=== PATIENT | male | born 1965 | race Caucasian/White ===

== ENCOUNTER 2017-07-08 10:47 | Day surgery (SDC) | payer OTHER ==
[~2017-07-08 10:47] MED LIST: Lactated Ringers 1,000 ML IV SCH; Lidocaine 2% 5 ML SDV ONE; Midazolam 1 MG/ML 2 ML SDV ONE; Propofol 200 MG/20 ML SDV ONE; fentaNYL 100 MCG/2 ML SDV ONE
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
[2017-07-08] MEDS ORDERED: Propofol 200 MG/20 ML SDV ONE (11:39)
--- NOTE | 2017-07-08 12:00 | PCM.OPNOTE ---
- General Post-Op/Procedure Note Date of Surgery/Procedure: 07/08/17 Operative Procedure(s): egd w bx. colonoscope Findings: dict [id number] Pre Op Diagnosis: change in bowel habits and abd pain Post-Op Diagnosis: Same Anesthesia Technique: Moderate Sedation Primary Surgeon: Isidro Garner Pathology: egd bx Complications: None Condition: Good
[2017-07-08 12:31] VITALS: BP 116/49
--- NOTE | 2017-07-08 12:44 | PCM48HPAN ---
Post Anesthesia Note - EVALUATION WITHIN 48HRS OF ANESTHETIC Vital Signs in Normal Range: Yes Patient Participated in Evaluation: Yes Respiratory Function Stable: Yes Airway Patent: Yes Cardiovascular Function Stable: Yes Hydration Status Stable: Yes Pain Control Satisfactory: Yes Nausea and Vomiting Control Satisfactory: Yes Mental Status Recovered: Yes
--- NOTE | 2017-07-08 12:44 | PCM.POSTAN ---
POST ANESTHESIA ASSESSMENT - MENTAL STATUS Mental Status: Alert, Oriented - RESPIRATORY Respiratory Status: Respiratory Rate WNL, Airway Patent, O2 Saturation Stable - CARDIOVASCULAR CV Status: Pulse Rate WNL, Blood Pressure Stable - GASTROINTESTINAL GI Status: No Symptoms - POST OP HYDRATION Hydration Status: Adequate & Stable
--- NOTE | 2017-07-08 14:33 | OR ---
SURGEON: Isidro Graner MD DATE OF PROCEDURE: 07/08/2017 PREOPERATIVE DIAGNOSIS: Abdominal pain and change in bowel habit. POSTOPERATIVE DIAGNOSIS: Abdominal pain and change in bowel habit. PROCEDURE PERFORMED: Esophagogastroduodenoscopy with biopsy and colonoscopy. FINDINGS: 1. The patient is easily sedated with ACID SPLICER and Diprivan. The patient is soundly snoring. 2. Oropharynx and proximal esophagus is free of disease and no stricture, ulceration, bleeding, or inflammation. Distal esophagus at GE junction at 40 shows salmon color change consistent with acid reflux, mild and the stomach rugae is normal in appearance and antrum is mildly inflamed, but no ulcer, no blood, no food, no bile, and duodenum was grossly normal. Retroflexed look at the fundus of stomach and the patient does not have hiatal hernia. Biopsy was done at antrum, body, GE junction at 40, and sucked out the air while scope pulling out. DESCRIPTION OF PROCEDURE: EGD: The patient was taken to the endoscopy room, and with the ACID SPLICER, Diprivan was administered. A well-lubricated EGD scope was gently inserted through the oropharynx, down the esophagus, passing through the gastroesophageal junction, into the stomach. The mucosa was examined upon the passage. Any etiology will be noted. Once in the stomach, we continued to advance to the distal antrum, passed through the pylorus into the second portion of the duodenum. Again, the mucosa was examined for any abnormality and etiology. The scope was then retrieved back to the stomach and then retroflexed to look at the fundus of the stomach. If a biopsy was indicated, we will biopsy the antrum, body, and gastroesophageal junction. The air will be sucked out while the scope is retrieved to reduce the patient's discomfort. The patient tolerated the procedure well. There were no intraoperative complications. Dr. Garner was present through the whole procedure. Prior to surgery, a time-out had been called, the patient identified, procedure identified and antibiotic administered. COLONOSCOPY FINDINGS: 1. The patient is easily sedated with ACID SPLICER and Diprivan. The patient is soundly snoring. 2. The patient's bowel prep was average to below average. Large amount of bubbles coating the mucosa compromised the study and quite a lot of bubbles and requiring constant irrigation, otherwise, colon is rather redundant at the sigmoid colon requiring reposition of the patient in order to get to the cecum. Cecum indicated by ileocecal fold, one-to-one indentation, and appendix orifice. Light immittance is not observed. Mucosa examined upon scope pulling out with constant irrigation and the patient does not have polyp, mass, growth, inflammation, stricture, ulceration, diverticulosis, or bleeding, none of those. The patient has a mild internal hemorrhoid and no external hemorrhoids. The patient would benefit from repeat colonoscopy 10 years from today or if clinically indicated otherwise. DESCRIPTION OF PROCEDURE: The patient was taken to the endoscopy room. A time out was called, patient identified, and procedure identified. Diprivan was then administrated. Patient went from awake to sleep, hearing doctor talking or door closing is normal. Perineum inspection and digital examination were then performed. A well- lubricated colonoscope was gently inserted through the rectum, advanced past the rectosigmoid junction, the descending colon, splenic flexure, transverse colon, hepatic flexure, ascending colon, arrived to the cecum. Cecum was identified as dictated in the finding. Then the scope was carefully withdrawn while attention was paid to the mucosal surface for any abnormality. Air will be sucked out during the scope withdrawal. At the rectum, retroflexed to examine any rectal diseases, fistula or hemorrhoids. Patient tolerated procedure well. There were no intraoperative complications, and Dr. Garner was present throughout the whole procedure. As always, thank you for your kind referral. LEONARDO / DIANA /[id number] MTDJenny
== END 2017-07-08 12:50 | disposition home or self-care (01) ==
LOC: MW.SDS 10:47
PROVIDERS: ATTEND Surgery
DX: K20.9 Esophagitis, unspecified (principal); E78.00 Pure hypercholesterolemia, unspecified; Z79.899 Other long term (current) drug therapy; Z98.52 Vasectomy status; Z87.891 Personal history of nicotine dependence; Z72.0 Tobacco use
CPT/HCPCS: 43239; 45378; J2250; J3010; J7120; 00740; 88305; 88312; J2704

== ENCOUNTER 2021-07-20 03:19 | Emergency (ER) | payer BC, OTHER ==
[2021-07-20] MEDS ORDERED: Sodium Chloride 0.9% 2.5 ML Syringe FLUSH PRN (04:01)
[2021-07-20] MEDS ORDERED: Ketorolac 15 MG/ML SDV IVPUSH ONE (04:01)
[2021-07-20] MEDS ORDERED: Sodium Chloride 0.9% 10 ML Syringe FLUSH PRN (04:01)
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
[2021-07-20 04:48] LABS: BLOOD UREA NITROGEN,BUN 18 mg/dL (7.0-18.0); CARBON DIOXIDE,CO2 32.3 mmol/L (21.0-32.0); CHLORIDE,CL 101 mmol/L (98-107); GLUCOSE RANDOM 95 mg/dL (74-106); POTASSIUM,K 4.4 mmol/L (3.5-5.1); SODIUM,NA 140 mmol/L (136-148)
--- NOTE | 2021-07-20 04:52 | CR ---
Indication: Shortness of breath. Technique: AP portable view of the chest. Comparison: June 18, 2016. Findings: The heart is normal in size. The lungs are clear. No infiltrate, pleural effusion, or pneumothorax is identified. Impression: No acute cardiopulmonary process Dictated by Windy Arzola MD @ 07/20/2021 4:52:[address] Windy Arzola @ Jul 20 2021 4:52AM
[2021-07-20 05:35] VITALS: BP 120/72; PULSE 72
== END 2021-07-20 05:17 | disposition home or self-care (01) ==
LOC: MW.ED 03:19
DX: U07.1 COVID-19 (principal); I48.91 Unspecified atrial fibrillation
CPT/HCPCS: 36415; 71045; 80053; 85025; 96374; 99285; J1885

== ENCOUNTER 2022-04-16 08:12 | Day surgery (SDC) | payer BC ==
[~2022-04-16 08:12] MED LIST changes: -Lidocaine 2% 5 ML SDV ONE; -Midazolam 1 MG/ML 2 ML SDV ONE; -Propofol 200 MG/20 ML SDV ONE; +Sodium Chloride 0.9% 10 ML Syringe FLUSH PRN; +Sodium Chloride 0.9% 2.5 ML Syringe FLUSH PRN; +Sodium Chloride 0.9% 20 ML SDV IV PRN; -fentaNYL 100 MCG/2 ML SDV ONE
[2022-04-16] MEDS ORDERED: Propofol 200 MG/20 ML SDV ONE (09:32)
[2022-04-16] MEDS ORDERED: fentaNYL 100 MCG/2 ML SDV ONE (09:32)
[2022-04-16] MEDS ORDERED: Lidocaine 2% 5 ML SDV ONE (09:32)
[2022-04-16 10:29] VITALS: BP 124/97; PULSE 72
== END 2022-04-16 11:47 | disposition home or self-care (01) ==
LOC: MW.SDS 08:12
PROVIDERS: ATTEND Surgery
DX: K29.50 Unspecified chronic gastritis without bleeding (principal); K21.9 Gastro-esophageal reflux disease without esophagitis; E78.5 Hyperlipidemia, unspecified; E78.00 Pure hypercholesterolemia, unspecified; Z79.899 Other long term (current) drug therapy; Z98.890 Other specified postprocedural states; Z87.891 Personal history of nicotine dependence
CPT/HCPCS: 43239; J2704; J3010; J7120; 00731